=== PATIENT | male | born 1960 | race Caucasian/White ===

== ENCOUNTER → 2018-06-16 | Day surgery (SDC) | payer MEDICARE ==
[~2018-06-16] MED LIST: ABILIFY5 MG PO; ADVAIR 250-501 EACH PO; ALBUTEROL0.63 MG/3 INH; AMITRIPTYLINE H10 MG PO; AMITRIPTYLINE H25 MG PO; AMLODIPINE BESY10 MG PO; ATORVASTATIN CA20 MG PO; BREO ELLIPTA INH; BUPROPION HCL75 MG PO; CHANTIX0.5 MG PO; CITALOPRAM HBR20 MG PO; CLONAZEPAM0.5 MG PO; CLOZAPINE100 MG PO; CYCLOBENZAPRINE10 MG PO; DEPAKOTE500 MG PO; FENTANYL CITRATE/PF 100MCG/2 ML INJ ONE; FLOMAX0.4 MG PO; LYRICA50 MG PO; MELOXICAM7.5 MG PO; METOPROLOL SUCC50 MG PO; MIDAZOLAM HCL 2 MG/2 ML VIAL ONE; NORCO 10-325 T1 EACH PO; OR PHACO EYE KIT ONE; OXYBUTYNIN CHLOR5 MG PO; PANTOPRAZOLE SO40 MG PO; PREOP PHACO EYE KIT ONE; TOPIRAMATE25 MG PO; TRAZODONE HCL50 MG PO; TYLENOL # 31 EA PO; VENTOLIN HFA18 GM INH
--- OUTSIDE RECORDS SUMMARY | 2018-06-16 10:38 | XMS REPORT ---
Author Author [facility] Address Unknown Phone Unavailable Care Team Providers Care Ratings Analyst Name Role Phone Unavailable Unavailable Payers Payer Name Policy Type Policy Number Effective Date Expiration Date Problems This patient has no known problems. Allergies, Adverse Reactions, Alerts Allergy Name Allergy Type Status Severity Reaction(s) Onset Date Inactive Date Treating Clinician Comments haloperidol DA Active U 2011-04-15 00:00:00 nalbuphine DA Active U 2011-04-15 00:00:00 HALDOL DA Active U 2004-05-01 00:00:00 LACTOSE DA Active U 2004-05-01 00:00:00 MILK DA Active U 2004-05-01 00:00:00 NUBAIN DA Active U 2004-05-01 00:00:00 No Known Contrast Allergies DA Active U 2004-05-01 00:00:00 No Known Other Allergies DA Active U 2004-05-01 00:00:00 Medications This patient has no known medications.
--- OUTSIDE RECORDS SUMMARY | 2018-06-16 10:38 | XMS REPORT | Clinical Summary ---
Author Author [facility] Address Unknown Phone Unavailable Care Team Providers Care Assistant Professor Of History Name Role Phone Linda Adame MD PCP Allergies Comments Active Allergy Reactions Severity Noted Date Haloperidol Anaphylaxis High 05/20/2017 Thiothixene Anaphylaxis High 05/20/2017 Medications End Date Status Medication Sig Dispensed Refills Start Date Active acetaminophen-codeine Take 1 tablet 0 (TYLENOL WITH CODEINE #3) by mouth 7 300-30 mg per tablet nightly. Active amLODIPine (NORVASC) 10 Take 10 mg by 0 04/29/201 mg tablet mouth every 7 morning. Active ARIPiprazole (ABILIFY) 30 Take 15 mg by 0 05/05/201 MG tablet mouth every 7 morning. Active citalopram (CeleXA) 20 MG Take 20 mg by 0 02/19/ tablet mouth every 7 morning. Active clonAZEPAM (KlonoPIN) 0.5 Take 0.5 mg 0 04/26/201 MG tablet by mouth 2 7 (two) times a day. Active cloZAPine (CLOZARIL) 100 Take 100 mg 0 MG tablet by mouth 7 every morning. And 2 tabs (200 mg) po and bedtime Active divalproex (DEPAKOTE) 500 Take 500 mg 0 04/02/ MG EC tablet by mouth 7 every 12 (twelve) hours. Active furosemide (LASIX) 20 mg Take 20 mg by 0 03/24/ tablet mouth every 7 morning. Active meloxicam (MOBIC) 15 mg Take 15 mg by 0 05/18/201 tablet mouth every 7 morning. Active propranolol (INDERAL) 20 Take 20 mg by 0 04/28/201 MG tablet mouth 3 7 (three) times a day. Active tamsulosin (FLOMAX) 0.4 Take 0.4 mg 0 mg capsule,extended by mouth 2 7 release 24hr (two) times a day. Take 30 minutes after breakfast and dinner Active pantoprazole (PROTONIX) Take 40 mg by 0 40 MG EC tablet mouth daily 7 before breakfast. Active minocycline Take 50 mg by 0 (MINOCIN,DYNACIN) 50 MG mouth 3 7 capsule (three) times a day. Active oxybutynin XL Take 10 mg by 0 (DITROPAN-XL) 10 MG 24 hr mouth every 7 tablet morning. Active tretinoin (RETIN-A) 0.05 Apply 1 0 % cream application 7 topically daily. Active acetaminophen-codeine Take 1 tablet 0 (TYLENOL WITH CODEINE #3) by mouth 300-30 mg per tablet daily as needed for mild pain or moderate pain. Active cloZAPine (CLOZARIL) 100 Take 200 mg 0 MG tablet by mouth nightly. And 1 tab (100 mg) in the morning. Active traMADol (ULTRAM) 50 mg Take 50 mg by 0 tablet mouth 2 (two) times a day. Active Problems Problem Noted Date Overdose 05/20/2017 Encounters Care Team Description Date Type Specialty Dmitry Purcell DO Visit for wound check (Primary Dx) 01/22/2018 Emergency Emergency Medicine Lesley Quiroz MD Contusion of clavicle, initial encounter; Contusion of right shoulder; Acromioclavicular joint pain, unspecified laterality 12/28/2017 Hospital Radiology Encounter after 06/15/2017 Social History Date Tobacco Use Types Packs/Day Years Used Current Every Day Smoker Cigarettes 0.4 Smokeless Tobacco: Never Used Alcohol Use Drinks/Week oz/Week Comments No Sex Assigned at Date Recorded Not on file Industry Job Start Date Occupation Not on file Not on file Not on file Travel End Travel History Travel Start No recent travel history available. Last Filed Vital Signs Time Taken Vital Sign Reading 01/22/2018 4:12 PM CDT Blood Pressure 135/97 01/22/2018 4:12 PM CDT Pulse 54 01/22/2018 4:12 PM CDT Temperature 36.1 C (96.9 F) 01/22/2018 4:12 PM CDT Respiratory Rate 16 01/22/2018 4:12 PM CDT Oxygen Saturation 100% - Inhaled Oxygen - Concentration 01/22/2018 12:54 PM CDT Weight 61.2 kg (135 lb) 01/22/2018 12:54 PM CDT Height 170.2 cm (5' 7") 01/22/2018 12:54 PM CDT Body Mass Index 21.14 Plan of Treatment Health Maintenance Due Date Last Done Comments MMR VACCINES (1 of 1 - 1962 Standard series) VARICELLA VACCINES (1 of 1974 2 - 2-dose adolescent series) COLON CANCER SCREENING 2011 SHINGRIX VACCINE (1 of 2) 2011 INFLUENZA VACCINE 03/02/2018 HEPATITIS B VACCINES Aged Out No longer eligible based on patient's age to complete this topic IPV VACCINES Aged Out No longer eligible based on patient's age to complete this topic MENINGOCOCCAL VACCINE Aged Out No longer eligible based on patient's age to complete this topic Procedures Comments Procedure Name Priority Date/Time Associated Diagnosis XR HUMERUS LEFT Routine 12/28/2017 Contusion of clavicle, 11:07 AM CDT initial encounter Contusion of right shoulder Acromioclavicular joint pain, unspecified laterality after 06/15/2017 Results * XR Humerus Left (12/28/2017 11:07 AM CDT) Narrative Performed At Examination: [facility] Left humerus CLINICAL HISTORY: S40.019A Contusion of unspecified shoulderinitial encounter, S40.011A Contusion of right shoulderinitial encounter Comparison studies: None. 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 There is remodeling and flattening of the humeral head. A large 2.7 cm calcified loose body is located in the axillary recess with adjacent smaller calcified loose bodies. The acromial clavicular joint is aligned. Regional rib structures are unremarkable. No acute findings. [id number] Procedure Note Hm Interface, Radiology Results Incoming - 12/28/2017 3:03 PM CDT Examination: Left humerus CLINICAL HISTORY: S40.019A Contusion of unspecified shoulder initial encounter, S40.011A Contusion of right shoulder initial encounter Comparison studies: None. 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 There is remodeling and flattening of the humeral head. A large 2.7 cm calcified loose body is located in the axillary recess with adjacent smaller calcified loose bodies. The acromial clavicular joint is aligned. Regional rib structures are unremarkable. No acute findings. [id number] Performing Organization Address City/State/Zipcode Phone Number [facility] [address] [place] [address] after 06/15/2017 Insurance Payer Benefit Subscriber ID Type Phone Address Plan / Group MEDICARE MEDICARE xxxxxxxxxx Medicare [place], [place] PART A AND B Advance Directives Patient has advance care planning documents, and code status on file. For more i nformation, please contact: Santi Bolivar [address] [place] [address] Date Inactivated Comments Code Status Date Activated 05/21/2017 2:59 PM Full Code 05/20/2017 7:57 AM Code Status decision reached by: Patient
[2018-06-16 13:35] VITALS: BP 144/87
== END | disposition home or self-care (01) ==
LOC: OR 10:36
PROVIDERS: ATTEND Ophthalmology
DX: H25.12 Age-related nuclear cataract, left eye (principal); I11.0 Hypertensive heart disease with heart failure; I50.30 Unspecified diastolic (congestive) heart failure; J44.9 Chronic obstructive pulmonary disease, unspecified; E78.5 Hyperlipidemia, unspecified; G89.4 Chronic pain syndrome; R56.9 Unspecified convulsions; I27.20 Pulmonary hypertension, unspecified; M47.897 Other spondylosis, lumbosacral region; I48.0 Paroxysmal atrial fibrillation; N40.1 Benign prostatic hyperplasia with lower urinary tract symptoms; N13.8 Other obstructive and reflux uropathy; F17.210 Nicotine dependence, cigarettes, uncomplicated
CPT/HCPCS: 66984; J2250; V2632

== ENCOUNTER 2021-05-13 05:23 | Observation (INO) | payer MEDICARE ==
[~2021-05-13] VITALS: Ht 170.2 cm; Wt 94.8 kg
[~2021-05-13 05:23] MED LIST changes: -FENTANYL CITRATE/PF 100MCG/2 ML INJ ONE; -MIDAZOLAM HCL 2 MG/2 ML VIAL ONE; +NALFON400 MG PO; -OR PHACO EYE KIT ONE; -PREOP PHACO EYE KIT ONE
[2021-05-13] MEDS ORDERED: SODIUM CHLORIDE 0.9% 500ML 500 ML ONE (06:14)
[2021-05-13] MEDS ORDERED: Vancomycin IV 1,000 MG ONE (06:15)
[2021-05-13] MEDS ORDERED: TRANEXAMIC ACID 1,000 MG/10 ML ML ONE (06:15)
[2021-05-13] MEDS ORDERED: DEXAMETHASONE SOD PHOS 10 MG/1 ML VIAL ONE (06:33)
[2021-05-13] MEDS ORDERED: GABAPENTIN 300 MG CAP ONE (06:33)
[2021-05-13] MEDS ORDERED: CELECOXIB 200 MG CAP ONE (06:33)
[2021-05-13] MEDS ORDERED: SODIUM CHLORIDE 0.9% 50ML 100 ML ONE (06:34)
[2021-05-13 06:48] LABS: BASOPHILS % 0.2 % (0.0-1.0); EOSINOPHILS # (AUTO) 0.1 (0.0-0.4); EOSINOPHILS % 1.3 % (0.0-6.0); HEMATOCRIT 47.4 % (38.2-49.6); HEMOGLOBIN 15.1 g/dL (14.0-18.0); LYMPHOCYTES # (AUTO) 3.4 (1.0-3.2); LYMPHOCYTES % 38.4 % (18.0-39.1); MEAN CORPUSCULAR HEMOGLOBIN 30.9 pg (28-32); MEAN CORPUSCULAR HGB CONC 31.9 g/dL (31-35); MEAN CORPUSCULAR VOLUME 96.9 fL (81-99); MONOCYTES # (AUTO) 0.9 (0.2-0.8); MONOCYTES % 10.3 % (4.4-11.3); NEUTROPHILS # (AUTO) 4.3 (2.1-6.9); NEUTROPHILS % 49.5 % (38.7-80.0); PLATELET COUNT 196 x10e3/uL (140-360); RED BLOOD COUNT 4.89 x10e6/uL (4.3-5.7); RED CELL DISTRIBUTION WIDTH 13.5 % (11.7-14.4)
[2021-05-13] MEDS ORDERED: ROPIVACAINE 246.25 MG, EPINEPHRINE HCL 1:1000 1ML 0.5 MG, CLONIDINE HCL 0.08 MG, KETORO... INJ ONE ×5 (08:00)
[2021-05-13] MEDS ORDERED: ACETAMINOPHEN 650 MG SUPP PR PRN (09:00)
[2021-05-13] MEDS ORDERED: ONDANSETRON HCL INJ 2MG/ML 2ML 2 MG/ML VIAL IV PRN (09:00)
[2021-05-13] MEDS ORDERED: KETOROLAC TROMETHAMINE 30 MG/ML VIAL IV PRN (09:00)
[2021-05-13] MEDS ORDERED: DIPHENHYDRAMINE HCL INJ 50 MG/ML VIAL IV PRN (09:00)
[2021-05-13] MEDS ORDERED: DOCUSATE SODIUM 100 MG CAP PO PRN (09:00)
[2021-05-13 10:10] VITALS: BP 148/98
[2021-05-13 10:17] VITALS: BP 148/98
[2021-05-13] MEDS: HYDROCODONE/APAP 7.5MG-325MG 1 EA TAB PO PRN ×2 (10:59→22:34)
[2021-05-13] MEDS: CELECOXIB 200 MG CAP PO SCH ×2 (11:00→17:52)
[2021-05-13] MEDS ORDERED: SODIUM CHLORIDE 0.9% 1000ML 1,000 ML IV SCH (11:00)
[2021-05-13] MEDS ORDERED: ACETAMINOPHEN 1000 MG/100 ML IV PRN (11:00)
[2021-05-13 11:36] VITALS: BP 137/84
[2021-05-13] MEDS: Cefazolin 1 GM in SODIUM CHLORIDE 0.9% 50ML 50 ML IV SCH ×2 (14:04→22:28)
[2021-05-13 15:12] VITALS: BP 115/70
[2021-05-13] MEDS ORDERED: FENTANYL CITRATE/PF 100MCG/2 ML INJ ONE (15:34)
[2021-05-13] MEDS ORDERED: MIDAZOLAM HCL 2 MG/2 ML VIAL ONE (15:34)
[2021-05-13] MEDS ORDERED: ASPIRIN 325 MG TAB PO SCH (18:00)
[2021-05-13 20:00] VITALS: BP 138/75
[2021-05-13 20:31] LABS: INR 0.98; PROTHROMBIN TIME 13.4 seconds (11.9-14.5)
[2021-05-13 20:32] LABS: PARTIAL THROMBOPLASTIN TIME 26.2 seconds (23.8-35.5)
[2021-05-13] MEDS ORDERED: ZOLPIDEM TARTRATE 5 MG TAB PO PRN (21:00)
[2021-05-14] VITALS: BP 128/82
[2021-05-14 04:00] VITALS: BP 135/83
[2021-05-14] MEDS: HYDROCODONE/APAP 7.5MG-325MG 1 EA TAB PO PRN (04:48)
[2021-05-14 05:00] LABS: BASOPHILS % 0.1 % (0.0-1.0); HEMATOCRIT 37.1 % (38.2-49.6); HEMOGLOBIN 12.2 g/dL (14.0-18.0); LYMPHOCYTES # (AUTO) 2.9 (1.0-3.2); LYMPHOCYTES % 16.9 % (18.0-39.1); MEAN CORPUSCULAR HEMOGLOBIN 31.3 pg (28-32); MEAN CORPUSCULAR HGB CONC 32.9 g/dL (31-35); MEAN CORPUSCULAR VOLUME 95.1 fL (81-99); MONOCYTES # (AUTO) 2.1 (0.2-0.8); MONOCYTES % 12.1 % (4.4-11.3); NEUTROPHILS % 70.5 % (38.7-80.0); PLATELET COUNT 191 x10e3/uL (140-360); RED CELL DISTRIBUTION WIDTH 13.4 % (11.7-14.4)
[2021-05-14 05:35] LABS: ALBUMIN 3.1 g/dL (3.5-5.0); ALBUMIN/GLOBULIN RATIO 1.3 (0.8-2.0); ANION GAP 12.7 mmol/L (8-16); CALCIUM 7.9 mg/dL (8.4-10.2); CREATININE, SERUM 0.75 mg/dL (0.72-1.25); POTASSIUM 3.7 mmol/L (3.5-5.1)
[2021-05-14] MEDS: Cefazolin 1 GM in SODIUM CHLORIDE 0.9% 50ML 50 ML IV SCH (06:31)
[2021-05-14 07:56] VITALS: BP 148/80
[2021-05-14 08:00] VITALS: BP 148/80
[2021-05-14] MEDS: HYDROCODONE/APAP 5MG-325MG TAB PO PRN ×2 (08:37→09:50)
[2021-05-14] MEDS ORDERED: ONDANSETRON HCL 4 MG ORAL DISINTEGRATING TAB PO PRN (08:45)
[2021-05-14] MEDS ORDERED: DEPAKOTE ER 500MG TAB(ONCE DAILY) PO SCH ×2 (09:00→21:00)
== END 2021-05-14 10:59 | disposition home health service (06) ==
LOC: OR 05:23 → PACU V 08:57 → MED/SURG 09:59
PROVIDERS: ADMIT Specialist; ATTEND Specialist
DX: M17.11 Unilateral primary osteoarthritis, right knee (principal); E66.9 Obesity, unspecified; Z68.32 Body mass index [BMI] 32.0-32.9, adult; J44.9 Chronic obstructive pulmonary disease, unspecified; I11.0 Hypertensive heart disease with heart failure; I50.32 Chronic diastolic (congestive) heart failure; I27.20 Pulmonary hypertension, unspecified; E78.5 Hyperlipidemia, unspecified; F20.9 Schizophrenia, unspecified; Z20.822 Contact with and (suspected) exposure to COVID-19; M87.9 Osteonecrosis, unspecified
CPT/HCPCS: 27447; 36415 ×2; 73560; 80053; 85025 ×2; 85610; 85730; 86850; 86900; 86920; 97116 ×2; 97162; 97530 ×2; G0378 ×2; J0171; J0690 ×2; J1100; J1885; J2795; J3370; J7040; U0002; J2250; J3010

== ENCOUNTER 2021-12-09 06:56 | Inpatient (IN) | payer MEDICARE ==
[2021-12-05 14:58] LABS: BASOPHILS % 0.2 % (0.0-1.0); EOSINOPHILS # (AUTO) 0.1 (0.0-0.4); EOSINOPHILS % 0.7 % (0.0-6.0); HEMATOCRIT 39.6 % (38.2-49.6); LYMPHOCYTES # (AUTO) 2.6 (1.0-3.2); LYMPHOCYTES % 31.5 % (18.0-39.1); MEAN CORPUSCULAR HEMOGLOBIN 28.6 pg (28-32); MEAN CORPUSCULAR HGB CONC 30.3 g/dL (31-35); MEAN CORPUSCULAR VOLUME 94.5 fL (81-99); MONOCYTES # (AUTO) 0.8 (0.2-0.8); MONOCYTES % 9.8 % (4.4-11.3); NEUTROPHILS # (AUTO) 4.7 (2.1-6.9); NEUTROPHILS % 57.6 % (38.7-80.0); PLATELET COUNT 235 x10e3/uL (140-360); RED BLOOD COUNT 4.19 x10e6/uL (4.3-5.7); RED CELL DISTRIBUTION WIDTH 16.3 % (11.7-14.4)
[~2021-12-09] VITALS: Ht 170.2 cm; Wt 95.3 kg
[~2021-12-09 06:56] MED LIST changes: +AMANTADINE100 MG PO; +ARICEPT5 MG PO; +BUPROPION XL150 MG PO; +CARBIDOPA-LEVO1 EACH PO; +DICLOFENAC SODI75 MG PO; +DICLOFENAC35 MG; +PROPRANOLOL HCL10 MG PO; +PROTONIX20 MG PO; +RISPERIDONE1 MG PO; +TOPIRAMATE100 MG PO; +TRAZODONE HCL100 MG PO
[2021-12-09] MEDS ORDERED: ROPIVACAINE 246.25 MG, EPINEPHRINE HCL 1:1000 1ML 0.5 MG, CLONIDINE HCL 0.08 MG, KETORO... INJ ONE ×5 (08:00)
[2021-12-09] MEDS ORDERED: SODIUM CHLORIDE 0.9% 250ML 250 ML ONE (08:12)
[2021-12-09] MEDS ORDERED: Vancomycin IV 1 GM VIAL ONE ×3 (08:12→11:45)
[2021-12-09] MEDS ORDERED: DEXAMETHASONE SOD PHOS 10 MG/1 ML VIAL ONE (08:24)
[2021-12-09] MEDS ORDERED: CELECOXIB 200 MG CAP ONE (08:24)
[2021-12-09] MEDS ORDERED: GABAPENTIN 300 MG CAP ONE (08:25)
[2021-12-09] MEDS ORDERED: TRANEXAMIC ACID 20 ML ONE (09:28)
[2021-12-09] MEDS ORDERED: Vancomycin IV 500 MG ONE (09:28)
[2021-12-09] MEDS ORDERED: TOBRAMYCIN 1.2GM BULK BOTTLE ONE (09:40)
[2021-12-09] MEDS ORDERED: TOBRAMYCIN 40 MG/ML 2ML VIAL ONE (09:44)
[2021-12-09] MEDS ORDERED: HYDROMORPHONE 1MG/1ML INJ ONE ×2 (11:11→13:05)
[2021-12-09] MEDS ORDERED: ACETAMINOPHEN 650 MG SUPP PR PRN (12:15)
[2021-12-09] MEDS ORDERED: ZOLPIDEM TARTRATE 5 MG TAB PO PRN (12:15)
[2021-12-09] MEDS ORDERED: DOCUSATE SODIUM 100 MG CAP PO PRN (12:15)
[2021-12-09] MEDS ORDERED: DIPHENHYDRAMINE HCL INJ 50 MG/ML VIAL IV PRN (12:15)
[2021-12-09] MEDS ORDERED: ONDANSETRON HCL INJ 2MG/ML 2ML 2 MG/ML VIAL IV PRN (12:15)
[2021-12-09] MEDS ORDERED: MIDAZOLAM HCL 2 MG/2 ML VIAL ONE (12:39)
[2021-12-09] MEDS ORDERED: FENTANYL CITRATE/PF 100MCG/2 ML INJ ONE (12:39)
[2021-12-09] MEDS ORDERED: LABETALOL HCL 20 ML ONE (13:02)
[2021-12-09] MEDS ORDERED: PROPOFOL IV EMULSION 10 MG/ML 20 ML VIAL ONE (13:28)
[2021-12-09] MEDS ORDERED: SEVOFLURANE INHAL SOLN 250 ML PEN BTL ONE (13:28)
[2021-12-09] MEDS ORDERED: ONDANSETRON HCL INJ 2MG/ML 2ML 2 MG/ML VIAL ONE (13:28)
[2021-12-09] MEDS ORDERED: LIDOCAINE HCL 2% LOCAL INJ 5 ML SDV VIAL INJ ONE (13:28)
[2021-12-09] MEDS ORDERED: POVIDONE IODINE 0.05% 0.05 % ML PO ONE (13:28)
[2021-12-09 14:00] VITALS: BP 178/95
[2021-12-09] MEDS: HYDROCODONE/APAP 7.5MG-325MG 1 EA TAB PO PRN (15:15)
[2021-12-09] MEDS: KETOROLAC TROMETHAMINE 30 MG/ML VIAL IV PRN (15:15)
[2021-12-09] MEDS: SODIUM CHLORIDE 0.9% 1000ML 1,000 ML IV SCH ×2 (15:59→21:52)
[2021-12-09 16:00] VITALS: BP 137/99
[2021-12-09] MEDS: ASPIRIN 325 MG TAB PO SCH (16:38)
[2021-12-09 16:54] LABS: CALCIUM 8.4 mg/dL (8.4-10.2); CREATININE, SERUM 0.7 mg/dL (0.72-1.25)
[2021-12-09] MEDS ORDERED: CELECOXIB 100 MG CAP PO SCH (17:00)
[2021-12-09] MEDS ORDERED: ACETAMINOPHEN 1000 MG/100 ML IV PRN (18:00)
[2021-12-09 20:00] VITALS: BP 167/83
[2021-12-09] MEDS: Vancomycin IV 1 GM in SODIUM CHLORIDE 0.9% 250ML 250 ML IV SCH (21:00)
[2021-12-09] MEDS ORDERED: PROPRANOLOL HCL 10 MG TAB PO SCH (21:00)
[2021-12-09] MEDS: DONEPEZIL HCL 5 MG TAB PO SCH (21:50)
[2021-12-09] MEDS: DEPAKOTE ER 500MG TAB(ONCE DAILY) PO SCH (21:51)
[2021-12-09] MEDS: CYCLOBENZAPRINE HCL 10 MG TAB PO SCH (21:51)
[2021-12-09] MEDS: AMANTADINE HCL 100 MG CAP PO SCH (21:52)
[2021-12-09] MEDS: ATORVASTATIN 20 MG TAB PO SCH (21:52)
[2021-12-09] MEDS: CARBIDOPA/LEVODOPA 10/100 TAB PO SCH (21:52)
[2021-12-09] MEDS: TRAZODONE HCL 50 MG TAB PO SCH (23:08)
[2021-12-10] VITALS (8 sets, daily range): BP systolic 124–160; BP diastolic 67–99
[2021-12-10] MEDS: KETOROLAC TROMETHAMINE 30 MG/ML VIAL IV PRN (02:34)
[2021-12-10] MEDS: HYDROCODONE/APAP 7.5MG-325MG 1 EA TAB PO PRN ×2 (02:35→15:10)
[2021-12-10 05:38] LABS: BASOPHILS % 0.1 % (0.0-1.0); EOSINOPHILS % 0.1 % (0.0-6.0); HEMATOCRIT 37.5 % (38.2-49.6); HEMOGLOBIN 11.6 g/dL (14.0-18.0); LYMPHOCYTES # (AUTO) 2.2 (1.0-3.2); LYMPHOCYTES % 18.8 % (18.0-39.1); MEAN CORPUSCULAR HEMOGLOBIN 28.7 pg (28-32); MEAN CORPUSCULAR HGB CONC 30.9 g/dL (31-35); MEAN CORPUSCULAR VOLUME 92.8 fL (81-99); MONOCYTES # (AUTO) 1.5 (0.2-0.8); MONOCYTES % 13.4 % (4.4-11.3); NEUTROPHILS # (AUTO) 7.7 (2.1-6.9); NEUTROPHILS % 67.3 % (38.7-80.0); PLATELET COUNT 231 x10e3/uL (140-360); RED BLOOD COUNT 4.04 x10e6/uL (4.3-5.7); RED CELL DISTRIBUTION WIDTH 15.9 % (11.7-14.4)
[2021-12-10 06:13] LABS: ALBUMIN 2.8 g/dL (3.5-5.0); ALBUMIN/GLOBULIN RATIO 0.9 (0.8-2.0); ANION GAP 7.5 mmol/L (8-16); CALCIUM 8.2 mg/dL (8.4-10.2); CREATININE, SERUM 0.7 mg/dL (0.72-1.25); POTASSIUM 3.5 mmol/L (3.5-5.1)
[2021-12-10] MEDS: HYDROCODONE/APAP 5MG-325MG TAB PO PRN (08:24)
[2021-12-10] MEDS: SODIUM CHLORIDE 0.9% 1000ML 1,000 ML IV SCH ×2 (08:27→22:14)
[2021-12-10] MEDS: Vancomycin IV 1 GM in SODIUM CHLORIDE 0.9% 250ML 250 ML IV SCH (08:29)
[2021-12-10] MEDS: OXYBUTYNIN CHLORIDE 5 MG TAB PO SCH (08:31)
[2021-12-10] MEDS: CITALOPRAM HYDROBROMIDE 20 MG TAB PO SCH (08:31)
[2021-12-10] MEDS: ASPIRIN 325 MG TAB PO SCH ×2 (08:31→16:27)
[2021-12-10] MEDS: CELECOXIB 200 MG CAP PO SCH ×2 (08:31→16:27)
[2021-12-10] MEDS: PANTOPRAZOLE SOD 40 MG TABEC PO SCH (08:32)
[2021-12-10] MEDS: AMANTADINE HCL 100 MG CAP PO SCH ×3 (08:33→21:00)
[2021-12-10] MEDS: CARBIDOPA/LEVODOPA 10/100 TAB PO SCH ×3 (08:33→21:00)
[2021-12-10] MEDS: DEPAKOTE DELAYED-RELEASE TAB 500 MG PO SCH (08:33)
[2021-12-10] MEDS: BUPROPION HCL 150 MG TABCR PO SCH (08:34)
[2021-12-10] MEDS: METOPROLOL SUCCINATE 50 MG TAB XL PO SCH (08:34)
[2021-12-10] MEDS: RISPERIDONE 1 MG TAB PO SCH (08:35)
[2021-12-10] MEDS: CYCLOBENZAPRINE HCL 10 MG TAB PO SCH ×3 (08:36→21:00)
[2021-12-10] MEDS: TOPIRAMATE 100 MG TAB PO SCH ×2 (08:36→16:28)
[2021-12-10] MEDS ORDERED: ASPIRIN325 MG PO (14:34)
[2021-12-10] MEDS ORDERED: ONDANSETRON HCL 4 MG ORAL DISINTEGRATING TAB PO PRN (15:15)
[2021-12-10] MEDS: TRAZODONE HCL 50 MG TAB PO SCH (21:00)
[2021-12-10] MEDS: DEPAKOTE ER 500MG TAB(ONCE DAILY) PO SCH (21:00)
[2021-12-10] MEDS: DONEPEZIL HCL 5 MG TAB PO SCH (21:00)
[2021-12-10] MEDS ORDERED: Vancomycin IV 1 GM in SODIUM CHLORIDE 0.9% 250ML 250 ML IV SCH (21:00)
[2021-12-10] MEDS: ATORVASTATIN 20 MG TAB PO SCH (21:00)
[2021-12-11 00:54] VITALS: BP 145/73
[2021-12-11] MEDS: HYDROCODONE/APAP 5MG-325MG TAB PO PRN (00:54)
[2021-12-11 05:39] VITALS: BP 171/108
[2021-12-11] MEDS: HYDROCODONE/APAP 7.5MG-325MG 1 EA TAB PO PRN ×3 (06:41→16:20)
[2021-12-11 07:24] VITALS: BP 152/74
[2021-12-11 07:41] LABS: BASOPHILS % 0.2 % (0.0-1.0); EOSINOPHILS # (AUTO) 0.1 (0.0-0.4); EOSINOPHILS % 1.3 % (0.0-6.0); HEMATOCRIT 37.8 % (38.2-49.6); HEMOGLOBIN 11.8 g/dL (14.0-18.0); LYMPHOCYTES # (AUTO) 2.3 (1.0-3.2); MEAN CORPUSCULAR HEMOGLOBIN 28.9 pg (28-32); MEAN CORPUSCULAR HGB CONC 31.2 g/dL (31-35); MEAN CORPUSCULAR VOLUME 92.6 fL (81-99); MONOCYTES # (AUTO) 1.2 (0.2-0.8); MONOCYTES % 12.2 % (4.4-11.3); NEUTROPHILS # (AUTO) 6.2 (2.1-6.9); NEUTROPHILS % 62.8 % (38.7-80.0); PLATELET COUNT 217 x10e3/uL (140-360); RED BLOOD COUNT 4.08 x10e6/uL (4.3-5.7); RED CELL DISTRIBUTION WIDTH 16.1 % (11.7-14.4)
[2021-12-11 08:00] VITALS: BP 152/74
[2021-12-11 08:08] LABS: ALBUMIN 2.5 g/dL (3.5-5.0); ALBUMIN/GLOBULIN RATIO 0.7 (0.8-2.0); ANION GAP 11.9 mmol/L (8-16); CALCIUM 7.9 mg/dL (8.4-10.2); CREATININE, SERUM 0.58 mg/dL (0.72-1.25); POTASSIUM 3.9 mmol/L (3.5-5.1)
[2021-12-11] MEDS ORDERED: CEFTRIAXONE 2 GM in SODIUM CHLORIDE 0.9% 100 ML IV SCH (09:00)
[2021-12-11] MEDS: CITALOPRAM HYDROBROMIDE 20 MG TAB PO SCH (09:33)
[2021-12-11] MEDS: CELECOXIB 200 MG CAP PO SCH ×2 (09:33→16:19)
[2021-12-11] MEDS: ASPIRIN 325 MG TAB PO SCH ×2 (09:33→16:19)
[2021-12-11] MEDS: DEPAKOTE DELAYED-RELEASE TAB 500 MG PO SCH (09:34)
[2021-12-11] MEDS: PANTOPRAZOLE SOD 40 MG TABEC PO SCH (09:34)
[2021-12-11] MEDS: CARBIDOPA/LEVODOPA 10/100 TAB PO SCH ×2 (09:34→15:05)
[2021-12-11] MEDS: CYCLOBENZAPRINE HCL 10 MG TAB PO SCH ×2 (09:34→15:05)
[2021-12-11] MEDS: AMANTADINE HCL 100 MG CAP PO SCH ×2 (09:35→15:05)
[2021-12-11] MEDS: BUPROPION HCL 150 MG TABCR PO SCH (09:35)
[2021-12-11] MEDS: RISPERIDONE 1 MG TAB PO SCH (09:45)
[2021-12-11] MEDS: OXYBUTYNIN CHLORIDE 5 MG TAB PO SCH (09:46)
[2021-12-11] MEDS: TOPIRAMATE 100 MG TAB PO SCH ×2 (09:47→16:19)
[2021-12-11] MEDS: METOPROLOL SUCCINATE 50 MG TAB XL PO SCH (09:47)
[2021-12-11 11:19] VITALS: BP 131/79
[2021-12-11 15:15] VITALS: BP 121/69
== END 2021-12-11 18:43 | DRG 467 ==
LOC: OR 06:56 → PACU V 12:19 → MED/SURG 13:45
PROVIDERS: ADMIT Specialist; ATTEND Specialist
PROC: 0SRC0EZ Replacement of Right Knee Joint with Articulating Spacer, Open Approach (ICD-10-PCS; 2021-12-09)
PROC: 0SPC0JZ Removal of Synthetic Substitute from Right Knee Joint, Open Approach (ICD-10-PCS; principal; 2021-12-09 10:06)
DX: T84.53XA Infection and inflammatory reaction due to internal right knee prosthesis, initial encounter (principal); I50.32 Chronic diastolic (congestive) heart failure; I11.0 Hypertensive heart disease with heart failure; G20 Parkinson's disease; Z96.651 Presence of right artificial knee joint; F17.210 Nicotine dependence, cigarettes, uncomplicated; J44.9 Chronic obstructive pulmonary disease, unspecified; F20.9 Schizophrenia, unspecified; F10.21 Alcohol dependence, in remission; E66.9 Obesity, unspecified; Z68.33 Body mass index [BMI] 33.0-33.9, adult; Z88.8 Allergy status to other drugs, medicaments and biological substances; Z20.822 Contact with and (suspected) exposure to COVID-19; Z82.0 Family history of epilepsy and other diseases of the nervous system; Z84.89 Family history of other specified conditions; G62.9 Polyneuropathy, unspecified; B95.61 Methicillin susceptible Staphylococcus aureus infection as the cause of diseases classified elsewhere
CPT/HCPCS: 36415; 36569; 71045; 80048; 80053; 85025; 86850; 86900; 86920; 87071; 87075; 87205; 93005; 94799; 97139; C1713; C1776; J0171; J0690; J0696; J1100; J1170; J1885; J2001; J2250; J2405; J2795; J3010; J3260; J3370; J7030; J7050

== ENCOUNTER 2022-01-03 18:01 | Emergency (ER) | payer MEDICARE ==
[~2022-01-03] VITALS: Ht 170.2 cm; Wt 95.3 kg
[~2022-01-03 18:01] MED LIST changes: +ASPIRIN325 MG PO
[2022-01-03] MEDS ORDERED: CEFTRIAXONE 2 GM in SODIUM CHLORIDE 0.9% 100 ML IV ONE (18:30)
== END 2022-01-03 18:45 | disposition home or self-care (01) ==
LOC: ER 18:39
DX: Z48.01 Encounter for change or removal of surgical wound dressing (principal)
CPT/HCPCS: 99283